=== PATIENT | male | born 1950 | race Caucasian/White ===

== ENCOUNTER 2017-08-13 14:25 | Inpatient (IN) | payer MEDICARE, MEDICAID ==
[2017-08-13 14:36] VITALS: BMI 28.2
--- NOTE | 2017-08-13 16:27 | RAD ---
HISTORY: r/o infiltrate COMPARISON: 05/19/2014 FINDINGS: LUNGS: No active pulmonary disease. PLEURA: No significant pleural effusion identified, no pneumothorax apparent. CARDIOVASCULAR: Normal. OSSEOUS STRUCTURES: No significant abnormalities. VISUALIZED UPPER ABDOMEN: Normal. OTHER FINDINGS: None. IMPRESSION: No active disease.
--- NOTE | 2017-08-13 16:58 | ED PDOC ---
Arrival/HPI - General Chief Complaint: Flu-like Symptoms Time Seen by Provider: 08/13/17 14:33 Historian: Patient - History of Present Illness Narrative History of Present Illness (Text): 08/13/17 16:54 67 year old male, whose history includes COPD, transferred from [facility] Emergency department for admission. Patient presented to [facility] Emergency department complaining of productive cough, nasal congestion, subjective fever, and headache for 3 days. At that time, patient received nebulizer treatment and IV antibiotics. The chest xray there was read as atelectasis vs pneumonia. Patient was also swabbed for Influenza and was positive for Influenza A. Patient denies any chest pain, shortness of breath, nausea, vomiting, diarrhea, urinary symptoms, back pain, neck pain, dizziness, recent travel, recent sick contact or any other complaints. Time/Duration: < week (3 days) Symptom Onset: Gradual Symptom Course: Unchanged Activities at Onset: Rest Context: Home Past Medical History - Provider Review Nursing Documentation Reviewed: Yes - Infectious Disease Hx of Infectious Diseases: None - Tetanus Immunization Tetanus Immunization: Unknown - Cardiac Hx Cardiac Disorders: (mi cad) Hx Hypertension: Yes Other/Comment: angioplasty - Pulmonary Hx Respiratory Disorders: No - Neurological HX Cerebrovascular Accident: Yes - HEENT Hx HEENT Disorder: No - Renal Hx Renal Cancer: Yes Other/Comment: right kidney failure was surgically removed 3 yrs ago - Endocrine/Metabolic Hx Endocrine Disorders: No - Hematological/Oncological Hx Cancer: Yes (bladder ca) Other/Comment: cancerous part of bladder sx removed and pt has cysto every 3 to 6 months - Integumentary Hx Dermatological Disorder: No - Musculoskeletal/Rheumatological Hx Falls: Yes (fell today) - Gastrointestinal Hx Gastrointestinal Disorders: No - Genitourinary/Gynecological Hx Bladder Cancer: Yes - Psychiatric Hx Psychophysiologic Disorder: No Hx Depression: No Hx Emotional Abuse: No Hx Physical Abuse: No Hx Substance Use: No - Surgical History Hx Coronary Stent: Yes (x3) - Suicidal Assessment Feels Threatened In Home Enviroment: No Family/Social History - Physician Review Nursing Documentation Reviewed: Yes Family/Social History: Unknown Family HX Smoking Status: Former Smoker Hx Alcohol Use: Yes (beer daily) Hx Substance Use: No Hx Substance Use Treatment: No Allergies/Home Meds Allergies/Adverse Reactions: Allergies Penicillins Allergy (Verified 08/13/17 14:39) ANAPHYLAXIS Home Medications: Home Meds Medication Instructions Recorded Confirmed Amlodipine Besylate [Norvasc] 5 mg PO DAILY 01/21/13 08/13/17 Aspirin [Aspir 81] 325 mg PO DAILY 01/21/13 08/13/17 Metoprolol Tartrate [Lopressor] 50 mg PO BID 01/21/13 08/13/17 Quinapril HCl 5 mg PO DAILY 01/21/13 08/13/17 Atorvastatin Calcium [Lipitor] 40 mg PO ACD 01/23/13 08/13/17 Review of Systems - Physician Review All systems were reviewed & negative as marked: Yes - Review of Systems Constitutional: Fevers (subjective) ENT: Sinus Congestion Respiratory: Cough, Sputum Cardiovascular: absent: Chest Pain Gastrointestinal: absent: Diarrhea, Nausea, Vomiting Genitourinary Male: absent: Dysuria Musculoskeletal: absent: Back Pain, Neck Pain Neurological: Headache. absent: Dizziness Physical Exam Vital Signs Reviewed: Yes Vital Signs Temp Pulse Resp BP Pulse Ox 08/13/17 17:30 99.5 F 84 20 140/76 95 08/13/17 16:30 88 20 132/83 94 L 08/13/17 14:33 98.1 F 74 18 125/69 97 Temperature: Afebrile Blood Pressure: Normal Pulse: Regular Respiratory Rate: Normal Appearance: Positive for: Well-Appearing, Non-Toxic, Comfortable Pain Distress: None Mental Status: Positive for: Alert and Oriented X 3 - Systems Exam Head: Present: Atraumatic, Normocephalic Pupils: Present: PERRL Extroacular Muscles: Present: EOMI Conjunctiva: Present: Normal Mouth: Present: Moist Mucous Membranes Neck: Present: Normal Range of Motion Respiratory/Chest: Present: Wheezes (bilateral expiratory wheezing) Cardiovascular: Present: Regular Rate and Rhythm, Normal S1, S2. No: Murmurs Abdomen: Present: Normal Bowel Sounds. No: Tenderness, Distention, Peritoneal Signs Back: Present: Normal Inspection Upper Extremity: Present: Normal Inspection. No: Cyanosis, Edema Lower Extremity: Present: Normal Inspection. No: Edema Neurological: Present: GCS=15, CN II-XII Intact, Speech Normal Skin: Present: Warm, Dry, Normal Color. No: Rashes Psychiatric: Present: Alert, Oriented x 3, Normal Insight, Normal Concentration Medical Decision Making ED Course and Treatment: 08/13/17 16:47 Impression: 67 year old female transferred from [facility] Emergency department complaining of cough and flu-like symptoms for 3 days. Plan: -- Labs -- Procalcitonin Serum -- Tylenol, Albuterol Duoneb, Aspirin, Lipitor, Budesonide, Lisinopril, Metoprolol, Oseltamivir -- Reassess and disposition Progress Notes: 08/13/17 16:50 Spoke to patient's PMD, Dr. Leroy, who was already aware that the patient was coming to this Emergency department and will be admitting the patient under her service. - EKG Interpretation EKG Interpretation (Text): 08/13/17 15:00 EKG: Ordered, reviewed, and independently interpreted the EKG. Rate : 75 BPM Rhythm : NSR Interpretation : Normal axis Interpreted by ED Physician: Yes Type: 12 lead EKG - Medication Orders Current Medication Orders: Acetaminophen (Tylenol 325mg Tab) 650 mg PO Q4 PRN PRN Reason: Fever >100.4 F Last Admin: 08/13/17 18:23 Dose: 650 mg MAR Pain/Vitals Document 08/13/17 18:23 [facility] (Rec: 08/13/17 18:24 [facility] [id number]) Pain Reassessment Is This A Pain ReAssessment? No Sleep Is patient sleeping during reassessment? No Presence of Pain Presence of Pain Yes Pain Scale Used Pain Scale Used Numeric Location Intensity 3 Scale Used Numeric Albuterol/Ipratropium (Duoneb 3 Mg/0.5 Mg (3 Ml) Ud) 3 ml IH [id number] [facility] Stop: 08/17/17 20:01 Aspirin (Aspirin) 325 mg PO DAILY [facility] Atorvastatin Calcium (Lipitor) 40 mg PO DAILY DAVID Budesonide (Pulmicort Respules) 0.5 mg IH BIDRESP DAVID Lisinopril (Zestril) 10 mg PO DAILY DAVID Metoprolol Tartrate (Lopressor) 50 mg PO BID DAVID Last Admin: 08/13/17 18:16 Dose: 50 mg Oseltamivir Phosphate (Tamiflu Cap) 75 mg PO Q12 DAVID PRN Reason: Protocol Discontinued Medications Oseltamivir Phosphate (Tamiflu Cap) 75 mg PO STAT STA PRN Reason: Protocol Stop: 08/13/17 15:39 Last Admin: 08/13/17 15:51 Dose: 75 mg - Scribe Statement The provider has reviewed the documentation as recorded by the Crysibradha Munguia All medical record entries made by the Jean Claude were at my direction and personally dictated by me. I have reviewed the chart and agree that the record accurately reflects my personal performance of the history, physical exam, medical decision making, and the department course for this patient. I have also personally directed, reviewed, and agree with the discharge instructions and disposition. Disposition/Present on Arrival - Present on Arrival Any Indicators Present on Arrival: No History of DVT/PE: No History of Uncontrolled Diabetes: No Urinary Catheter: No History of Decub. Ulcer: No History Surgical Site Infection Following: None - Disposition Have Diagnosis and Disposition been Completed?: Yes Diagnosis: Pneumonia, Influenza Disposition Time: 14:40 Condition: STABLE
[2017-08-14] MEDS: Budesonide 0.5 mg/2 ml Inhal Susp UD IH SCH ×3 (01:36→20:30)
[2017-08-14] MEDS: Albuterol-Ipratrop 3 mg / 0.5 (3 ml) UD IH SCH ×5 (01:37→20:30)
[2017-08-14 06:27] LABS: MEAN CELL VOLUME 92.1 fl (80.0-105.0); MEAN CORPUSCULAR HEMOGLOBIN 31.5 pg (25.0-35.0); MEAN CORPUSCULAR HGB CONC 34.3 g/dl (31.0-37.0); MEAN PLATELET VOLUME 9.4 fl (7.0-11.0); RBC 4.66 10^6/uL (3.5-6.1); RED CELL DISTRIBUTION WIDTH 13.5 % (11.5-14.5); WHITE BLOOD COUNT 5.2 10^3/ul (4.5-11.0)
[2017-08-14 06:34] LABS: HEMOGLOBIN 14.7 g/dL (14.0-18.0)
[2017-08-14 06:45] LABS: ALB/GLOB RATIO 1.2 (1.1-1.8); ALT/SGPT 33 U/L (7-56); AST/SGOT 34 U/L (17-59); BLOOD UREA NITROGEN 19 mg/dL (7-21); CALCIUM 8.7 mg/dL (8.4-10.5); GFR AFRICAN-AMERICAN > 60; GFR NON-AFRICAN AMERICAN > 60
--- NOTE | 2017-08-14 16:58 | CARD ---
APPROVED REPORT EKG Measurement Heart [id number] <Conclusion> Normal sinus rhythm Normal ECG
--- NOTE | 2017-08-14 19:53 | HP ---
CHIEF COMPLAINT: Generalized fatigue, fever, and dry cough for 2 days. HISTORY OF PRESENT ILLNESS: This is a 67-year-old male with history of coronary artery disease, smoker, who was transferred from [facility] for evaluation after diagnosed with influenza. The patient complaint of sudden onset of fever, body ache, headache, and very dry cough 2 days prior to evaluation. He took kydv-iit-lvrxyly cough medications, but continued with very high fever. In Urgent Care Center, the patient had positive flu test. He was hypoxic with O2 saturation of 88 %. Initial CXR was read as possible right lung pneumonia vs atelectasis .He was advised to be admitted for further treatment and transferred to Emergency Room for evaluation. He denied any chest pain, shortness of breath, abdominal pain, but he complaints of loss of appetite. 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 History of thoracic compression fracture after fall. PAST SURGICAL HISTORY: Status post right nephrectomy due to renal cancer. ALLERGIES: THE PATIENT HAS KNOWN ALLERGY TO PENICILLIN. PRESENT MEDICATIONS: Aspirin, quinapril 5 mg daily, metoprolol 60 mg twice a day, atorvastatin 40 mg daily, and amlodipine 5 mg daily. FAMILY HISTORY: Noncontributory. SOCIAL HISTORY: The patient is a smoker. He smoked 1 to 2 packs a day. He quit and then restarted smoking on and off few cigarettes daily. The patient drinks alcohol occasionally an average 1 to 2 beers weekly. He denies any drug use. The patient is retired. He is . He lives with . The patient is independent of activity of daily living. REVIEW OF SYSTEMS: He complains of fever from the past 2 days, complaints of body weakness, and loss of appetite. The patient denies any weight loss. He denies any sore throat or complaining of nasal congestion and rhinorrhea. For the past 2 days, he complains of decrease of hearing as worse for the past 2 days. He denies any chest pain. Complains of dry cough and some wheezing. Complains of some exertional dyspnea. Denies any palpitations or diaphoresis. He denies any abdominal pain, nausea, vomiting, diarrhea, or constipation. He denies any dysuria, hematuria, or flank pain. He complains of chronic thoracic back pain due to history of compression fracture. He denies any right wrist pain. He denies any blurry vision, new weakness, numbness or paraesthesia. He denies any depression, anxiety, or insomnia. PHYSICAL EXAMINATION: VITAL SIGNS: This morning positive for fever 101.4, his pulse 97 and regular, blood pressure 134/82, and respiratory rate of 20. His oxygen saturation on 2 L of nasal cannula was 95%. GENERAL: The patient is comfortable in bed. He is in no acute form of distress. HEENT: Head is normocephalic and atraumatic. Eyes with pupils reactive to light. No jaundice. Mild nasal congestion. Decrease of hearing. Oral mucosa is moist. NECK: Supple. No neck masses. No JVD. LUNGS: With bilateral scattered wheezing. No rales or rhonchi. HEART: With regulator rhythm and rate. ABDOMEN: Soft, nontender, and nondistended. EXTREMITIES: With no edema. Full range of motion. LABORATORY DATA: The patient had test positive serology for influenza A. His first chest x-ray showed bilateral atelectasis versus possible infiltration. Repeated chest x-ray in Emergency Room in [facility] was normal showed no infiltration. His EKG showed normal sinus rhythm with no ST changes. His CBC was normal. WBC 5.2, hemoglobin 14.7, and hematocrit 42.9. Chemistry normal. Normal renal function. ASSESSMENT: 1. A 67-year-old male with sudden onset of fever, cough, and positive influenza test and admitted for influenza with acute viral bronchitis. 2. Hypertension. PLAN OF TREATMENT: The patient will be monitored in telemetry, started on Tamiflu. In Emergency Room, we will continue Tamiflu twice a day and will be treated with nebulizer with budesonide twice a day. We will resume his chronic medications; atorvastatin, metoprolol, and aspirin. Sara Aguilar MD SUJIT
[2017-08-15] MEDS: Albuterol-Ipratrop 3 mg / 0.5 (3 ml) UD IH SCH ×3 (01:18→13:17)
[2017-08-15 06:41] LABS: HEMOGLOBIN 15.3 g/dL (14.0-18.0); MEAN CELL VOLUME 91.6 fl (80.0-105.0); MEAN CORPUSCULAR HEMOGLOBIN 31.3 pg (25.0-35.0); MEAN CORPUSCULAR HGB CONC 34.2 g/dl (31.0-37.0); MEAN PLATELET VOLUME 9.4 fl (7.0-11.0); RBC 4.89 10^6/uL (3.5-6.1); RED CELL DISTRIBUTION WIDTH 13.2 % (11.5-14.5); WHITE BLOOD COUNT 4.6 10^3/ul (4.5-11.0)
[2017-08-15 07:20] LABS: ALB/GLOB RATIO 1.1 (1.1-1.8); ALT/SGPT 27 U/L (7-56); AST/SGOT 34 U/L (17-59); BLOOD UREA NITROGEN 26 mg/dL (7-21); CALCIUM 8.8 mg/dL (8.4-10.5); GFR AFRICAN-AMERICAN > 60; GFR NON-AFRICAN AMERICAN > 60
[2017-08-15] MEDS: Budesonide 0.5 mg/2 ml Inhal Susp UD IH SCH (07:46)
[2017-08-15 08:19] VITALS: O2SAT 97
[2017-08-15] MEDS ORDERED: QUINAPRIL HCL 5 MG PO SCH ×2 (10:00)
[2017-08-15] MEDS ORDERED: AMLODIPINE BESYLATE 5 MG PO SCH (10:00)
[2017-08-15] MEDS ORDERED: METOPROLOL TARTRATE 50 MG PO SCH (10:00)
[2017-08-15 10:23] VITALS: PULSE 82
[2017-08-15 12:13] VITALS: BP 147/85; RESP 20; TEMP 98.2
[2017-08-15 12:41] LABS: URINE APPEARANCE CLEAR (CLEAR); URINE BILIRUBIN NEGATIVE (NEGATIVE); URINE BLOOD TRACE-INTACT (NEGATIVE); URINE COLOR YELLOW (YELLOW); URINE GLUCOSE (UA) NEGATIVE (NEGATIVE); URINE LEUKOCYTE ESTERASE NEGATIVE Leu/uL (NEGATIVE); URINE NITRATE NEGATIVE (NEGATIVE); URINE PROTEIN NEGATIVE mg/dL (<30 mg/dL)
[2017-08-15 12:54] LABS: URINE WBC 0 - 2 /hpf (0-6)
--- NOTE | 2017-08-15 12:56 | DS ---
HISTORY AND HOSPITAL COURSE: The patient was admitted for acute influenza symptoms. The patient is feeling much better. He is afebrile for the 24 hours. His cough is improved. He denies any chest pain or shortness of breath. The patient complains of left hip pain since this morning. Difficulty of standing upon left side. PHYSICAL EXAMINATION: VITAL SIGNS: Stable. Temperature of 98, pulse of 79, blood pressure of 129/88, respiratory rate of 20, and oxygen saturation of 97%. GENERAL: The patient is alert, awake, oriented, and in no acute form of distress. HEENT: Head is normocephalic and atraumatic. Eyes: Pupils are reactive to light. No jaundice. Oral mucosa is moist. NECK: Supple. LUNGS: With decreased breath sounds, a very few scattered wheezing, cleared with cough. HEART: With regular rhythm and rate. ABDOMEN: Soft, nontender, and nondistended. EXTREMITIES: With no edema and there is some pain on deep flexion and rotation movement of the left hip. DIAGNOSTICS TESTS: This morning CBC is stable with WBC of 4.6 and hemoglobin of 15.3. Chemistry is normal. His procalcitonin was negative. Chest x-ray on admission was clear. ASSESSMENT/FINAL DIAGNOSES: 1. Influenza confirmed by serology and Influenza A. 2. Exacerbation of chronic obstructive pulmonary disease secondary to viral infection. 3. Acute bronchitis. 4. Hypertension. 5. Coronary artery disease. 6. Left hip pain. PLAN OF TREATMENT: The patient will be discharged home today. Continue heart-healthy diet. The patient will finish a Tamiflu 75 mg capsules twice a day for next four days. The patient will continue bronchodilator, rescue inhaler, Ventolin two puffs q.4 to 6 hours. as needed for cough and will also sent cough syrup as needed. The patient will be also maintained on his chronic medications; metoprolol 50 mg twice a day, Lipitor 20 mg daily, aspirin 81 mg daily, quinapril 5 mg daily and amlodipine once a day. Sara Aguilar MD
--- NOTE | 2017-08-15 14:06 | RAD ---
PROCEDURE: Left Hip X-ray Radiographs. HISTORY: Hip pain COMPARISON: None. FINDINGS: BONES: Normal. No fracture. JOINTS: Normal. SOFT TISSUES: Normal. OTHER FINDINGS: None. IMPRESSION: Normal left hip radiographs.
== END 2017-08-15 13:40 | disposition home or self-care (01) | DRG 194 ==
LOC: ED 14:25 → ERH 15:38 → 2RSO 20:35 → OBSVTOIN 08-14 16:04
PROVIDERS: ADMIT Family Medicine; ATTEND Family Medicine
DX: J11.00 Influenza due to unidentified influenza virus with unspecified type of pneumonia (principal); J44.0 Chronic obstructive pulmonary disease with (acute) lower respiratory infection; J10.1 Influenza due to other identified influenza virus with other respiratory manifestations; J20.8 Acute bronchitis due to other specified organisms; R09.02 Hypoxemia; I25.10 Atherosclerotic heart disease of native coronary artery without angina pectoris; I10 Essential (primary) hypertension; F17.200 Nicotine dependence, unspecified, uncomplicated; Z79.899 Other long term (current) drug therapy; Z85.51 Personal history of malignant neoplasm of bladder; Z85.528 Personal history of other malignant neoplasm of kidney; Z86.73 Personal history of transient ischemic attack (TIA), and cerebral infarction without residual deficits; Z90.5 Acquired absence of kidney; Z95.5 Presence of coronary angioplasty implant and graft; Z91.81 History of falling; Z88.0 Allergy status to penicillin; Z87.892 Personal history of anaphylaxis; R40.2412 Glasgow coma scale score 13-15, at arrival to emergency department; M25.552 Pain in left hip

== ENCOUNTER 2017-11-22 06:15 | Day surgery (SDC) | payer MEDICARE, MEDICAID ==
[2017-09-27 14:27] VITALS: BMI 27.1
[2017-11-22] MEDS ORDERED: Midazolam 2 MG/2 ML VIAL ONE ×3 (06:56→09:33)
[2017-11-22] MEDS ORDERED: Phenylephrine 10 mg/ml Inj ONE (06:56)
[2017-11-22] MEDS ORDERED: Lidocaine 2% Inj (20ml) ONE (06:56)
[2017-11-22] MEDS ORDERED: Iodixanol 320 MG/ML 200 ML BOTTLE IV ONE (06:57)
[2017-11-22] MEDS ORDERED: Nitroglycerin 50mg in D5W 50 MG/250 ML BOTTLE IV ONE (06:57)
[2017-11-22] MEDS ORDERED: Iodixanol 320 MG/ML 100 ML BOTTLE IV ONE ×2 (06:57→09:28)
[2017-11-22] MEDS ORDERED: Iohexol 350mgl/ml 50 ML ONE (06:57)
[2017-11-22 07:02] VITALS: O2SAT 95
[2017-11-22] MEDS ORDERED: Sodium Chloride 0.9% 1,000 ML IV SCH (10:00)
--- NOTE | 2017-11-22 15:35 | CARDCATH ---
PROCEDURE DATE: 11/22/2017 PROCEDURES: 1. Left and right coronary angiography. 2. Percutaneous coronary intervention of left circumflex artery with drug-eluting stents. 3. Balloon angioplasty of right coronary artery. HISTORY: This is a 67-year-old male with known heart disease, status post prior multivessel PCI, admitted for staged percutaneous coronary intervention of his left circumflex artery. INDICATION: As above. FINDINGS: HEMODYNAMICS: The aortic pressure was 120/70, left ventricular pressure was not measured. CORONARY ANATOMY: 1. The right coronary artery was dominant. The previously placed stents in the RCA were patent. There was mild proximal in-stent restenosis and then a very distal segment of the vessel, there was a 60% in-stent restenosis noted as well. 2. The left main stem was normal. 3. Left anterior semi artery had mild diffuse irregularities with evidence of mild 30% in-stent restenosis in the mid LAD. There was 40%-50% lesion near the mid segment of the vessel as well. The left circumflex artery gave rise to 1 large bifurcating obtuse marginal branch. In the proximal segment, there was an eccentric calcified 70% stenosis present. The bifurcation of the obtuse marginal branch, there was 70% stenosis as well as a 70% stenosis in the second limb of the obtuse marginal branch. CORONARY INTERVENTION: A 3.5 EBU-guide catheter was utilized for visualization of the left coronary artery system. A 4000 units of intravenous heparin ACT was greater than 250 seconds during the procedure. The lesion in the circumflex was successfully crossed with the use of a [place] wire. This was advanced into the second limb of the obtuse marginal. A 2.5 x 12 mm balloon was then advanced into the distal branch and inflation performed to 12 atmospheres. The balloon was then withdrawn and an inflation performed at the bifurcation as well as in the proximal left circumflex artery. The balloon catheter was then removed and a 2.5 x 12 mm Resolute [place] drug-eluting stent was advanced into the distal obtuse marginal branch. This was inflated to 12 atmospheres. The stent balloon was then removed and a 2.5 x 8 mm Resolute [place] drug-eluting stent was advanced into the segment of the bifurcation. This was inflated to 12 atmospheres. Following this, there appeared to be sluggish flow in the first limb of the obtuse marginal. A [place] wire had been advanced into the distal limb and the [place] wire was then advanced into the first limb of the obtuse marginal. A 2.0 x 8 mm balloon was then advanced into the very ostium of the obtuse marginal branch to expand and allow for separation of stent structure, which appeared to be causing obstruction of the ostium of the vessel. This was successful. Following this, the balloon was removed and a 2.75 x 12 mm Resolute [place] drug-eluting stent was advanced into the proximal segment and inflated to 14 atmospheres. There was 0% residual stenosis at the site. Following this, there appeared to be an area worsened disease between the proximal and mid stent, likely due to wire and catheter manipulation. This was then treated with the placement of a 2.75 x 8 mm Resolute drug-eluting stent, which overlapped the other stents as well. This was inflated to 12 atmospheres. The stent balloon was then advanced distally and multiple inflations performed throughout the stent segment to 12 atmospheres. There again appeared to be evidence of ostial impingement of the first limb of the obtuse marginal branch. Intracoronary nitroglycerin was infused; however, this persisted. Following this, a 2.5x 8 mm noncompliant balloon was advanced into the ostial segment and inflated to 12 atmospheres to again stent struts and allow for improved flow. [place] grade 3 flow was present in all limbs following intervention. There did appear to be mild 40% ostial left circumflex residual disease, which was left untreated. Following this, the EBU guide catheter was exchanged for a JR4 guide catheter and this was advanced. A [place] wire then placed into the distal right coronary artery and a 3.0 x 12 mm noncompliant balloon was advanced into the distal segment of the RCA and multiple inflations performed up to 23 atmosphere. There was improvement in the distal lesion from 60% to 20%. LEFT FEMORAL ARTERIOGRAPHY: A left femoral arteriogram was performed in the [place] projection. This revealed no evidence of disease and appropriate level of arterial puncture. The puncture site was closed with deployment of an Angio-Seal device. CONCLUSION: 1. Severe left circumflex disease as described above successfully treated with placement of drug-eluting stents as described above. 2. Distal RCA in-stent stenosis treated with noncompliant balloon inflation. RECOMMENDATIONS: Given the above findings, aspirin and Plavix therapy will likely be continued indefinitely, continue risk factor control be advised. Chacho Espinal MD [facility] # [id number] SUJIT
[2017-11-22 17:02] VITALS: BP 135/70; PULSE 66; RESP 19; TEMP 98.4
--- NOTE | 2017-11-22 18:25 | CARD ---
APPROVED REPORT EKG Measurement Heart [id number] <Conclusion> Sinus bradycardia Otherwise normal ECG
== END 2017-11-22 17:15 | disposition home or self-care (01) ==
LOC: CATH 06:15 → 2RNO 10:16 → CATH 17:15
PROVIDERS: ATTEND Internal Medicine Cardiovascular Disease
DX: I25.10 Atherosclerotic heart disease of native coronary artery without angina pectoris (principal); T82.858A Stenosis of other vascular prosthetic devices, implants and grafts, initial encounter
CPT/HCPCS: 36415; 85175; 86850; 86900; 92920; 93005; 93454; 99152; 99153; C1725 ×3; C1760; C1769 ×3; C1874 ×4; C1887 ×2; C9600; J1644 ×2; J2250; J3010; J7030; J7040; Q9966; Q9967 ×2